=== PATIENT | female | born 2000 | race Caucasian/White ===

== ENCOUNTER 2023-03-16 17:39 | Emergency (ER) | payer BC, OTHER ==
[~2023-03-16] VITALS: Ht 160 cm; Wt 63.6 kg
[~2023-03-16 17:39] MED LIST: LEVA15HF4 IH; NAPR-232 PO; ZOF4T PO
[2023-03-16 18:05] VITALS: BP 118/81; PULSE 70; RESP 18; TEMP 97.6; O2SAT 99
[2023-03-16] MEDS ORDERED: LIDOcaine 1%/PF 5ML 10 MG/ML VIAL IM ONE (20:15)
== END 2023-03-16 21:20 | disposition home or self-care (01) ==
LOC: ER 17:39
DX: S61.412A Laceration without foreign body of left hand, initial encounter (principal); J45.909 Unspecified asthma, uncomplicated; Z88.8 Allergy status to other drugs, medicaments and biological substances; Z79.899 Other long term (current) drug therapy; W18.39XA Other fall on same level, initial encounter; Y93.89 Activity, other specified; Y92.89 Other specified places as the place of occurrence of the external cause; Y99.8 Other external cause status
CPT/HCPCS: 12002; 99282; A6258; A6449